=== PATIENT | female | born 1935 | race Caucasian/White ===

== ENCOUNTER 2016-12-05 10:38 | Outpatient (CLI) | payer OTHER ==
--- NOTE | 2016-12-05 12:46 | DIAGNOSTIC IMAGING REPORT ---
PROCEDURE: MG BILATERAL SCREENING W/CAD INDICATION: Screening. 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 Family history breast carcinoma (sister). TECHNIQUE: Bilateral CC and MLO digital views. COMPARISON: Compared to 11/22/2015, 11/14/2014, and 08/12/2013. FINDINGS: Computer-aided detection applied. Moderately dense with dystrophic calcifications. There are postoperative changes and scarring in the upper central right breast with coarse dystrophic calcifications. No change. IMPRESSION: 1. Stable postoperative postradiation change of the right breast. 2. Otherwise negative mammogram. RESULT CODE: 2- Benign finding(s). A. A negative report should not delay biopsy if a dominant or clinically suspicious mass is present. 10-15% of cancers are not identified by x-ray. B. A negative report may reinforce clinical impression. C. Adenosis and dense breasts may obscure an underlying neoplasm. D. False positive reports average 6-10%. E.. A yearly screening mammogram is recommended. A reminder letter will be scheduled.
== END 2016-12-05 23:00 ==
LOC: MAM SRH 10:38
DX: Z12.31 Encounter for screening mammogram for malignant neoplasm of breast (principal); Z80.3 Family history of malignant neoplasm of breast; Z85.3 Personal history of malignant neoplasm of breast